=== PATIENT | female | born 1965 | race Caucasian/White ===

== ENCOUNTER 2024-02-07 09:36 | Emergency (ER) | payer OTHER ==
[2024-02-07] MEDS ORDERED: Acetaminophen 500 MG TAB ONE (10:08)
[2024-02-07] MEDS ORDERED: Boostrix 0.5 ML (Tdap) VIAL (>/=7 yrs of age) ONE (10:09)
[2024-02-07] MEDS ORDERED: Ketorolac Tromethamine 30 MG (1 mL) VIAL ONE (10:28)
== END 2024-02-07 12:12 | disposition home or self-care (01) ==
LOC: ERS 09:36
DX: S80.212A Abrasion, left knee, initial encounter (principal); S80.211A Abrasion, right knee, initial encounter; S50.312A Abrasion of left elbow, initial encounter; M25.422 Effusion, left elbow; M77.9 Enthesopathy, unspecified; Z23 Encounter for immunization; W22.8XXA Striking against or struck by other objects, initial encounter
CPT/HCPCS: 90471; 90715; 93005; 96372; J1885